=== PATIENT | female | born 1980 | race Two or more races ===

== ENCOUNTER 2017-08-21 22:14 | Emergency (ER) | payer MEDICAID ==
[~2017-08-21] VITALS: Ht 154.9 cm; Wt 90.7 kg
[2017-08-21 22:58] LABS: Urine Bacteria FEW /hpf (None Seen); Urine Blood 1+ /uL (Negative); Urine Specific Gravity 1.014 (1.001-1.035); Urine WBC 1 /hpf (0 - 5)
[2017-08-22 02:21] VITALS: BP 136/52
[2017-08-22] MEDS ORDERED: HYDROcodone-ACET 7.5/325MG TAB PO ONE (03:00)
[2017-08-22] MEDS ORDERED: KETOROLAC TROMETH 60MG/2ML VIAL IM ONE (03:00)
[2017-08-22] MEDS ORDERED: DEXAMETHASONE SOD PHOS 10MG/1ML VIAL INJ IM ONE (03:00)
== END 2017-08-22 04:58 | disposition home or self-care (01) ==
LOC: ER 22:14
DX: M54.31 Sciatica, right side (principal)
CPT/HCPCS: 81001; 81025; 96372; 99284; J1100; J1885